=== PATIENT | male | born 1955 ===

== ENCOUNTER → 2019-07-29 06:46 | Day surgery (SDC) | payer MEDICARE ==
[~2019-07-29 06:46] MED LIST: Acetaminophen TAB* 325 MG ONE; Acetaminophen TAB* 325 MG PO ONE; Buffered Lidocaine 1% SYRIN* 1 ML/SYRINGE INTRADERM ONE; Bupivacaine 0.25% SDV* 30 ML ONE; DiMENhydriNATE IV* 50 MG/ML VIAL IV PUSH PRN; Famotidine IV* 10 MG/ML 2 ML (20 mg) IV ONE; Famotidine IV* 10 MG/ML 2 ML (20 mg) ONE; Gabapentin CAP(*) 300 MG ONE; Gabapentin CAP(*) 300 MG PO ONE; HYDROcodone/ACETAMIN 5-325 MG* 1 TAB PO PRN; Lactated Ringers 1000 ML Bag* 1,000 ML IV SCH; Lidocaine 2% PF * 5 ML VIAL ONE; Midazolam* 1 MG/ML 2 ML VIAL (2 MG) ONE; Naloxone* 0.4 MG/ML 1 ML VIAL IV PRN; Ondansetron INJ* 2 MG/ML VIAL IV PRN; Ondansetron INJ* 2 MG/ML VIAL ONE; Propofol* 10 MG/ML 20 ML BTL ONE; Succinylcholine* 20 MG/ML 10 ML VIAL ONE; ceFAZolin 2 GM in NS PREMIX(*) 2 GM/100 ML BAG IVPB ONE; fentaNYL* 50 MCG/ML 2 ML VIAL (100 MCG VIAL) IV PRN; fentaNYL* 50 MCG/ML 2 ML VIAL (100 MCG VIAL) ONE
--- NOTE | 2019-07-29 10:56 | OP ---
Operative Report - Blank - Operative Report Date of Operation: 07/29/19 Note: PATIENT: Yusef Cowart DATE OF : 1955 DATE OF SURGERY: 07/29/2019 SURGEON: Juan F Jimenez MD [employer] SUPERVISOR: ROXANA Rahman, whos assistance was necessary for positioning, retraction, help with instrumentation, and closure. ANESTHESIOLOGIST: Dr. Holloway PREOPERATIVE DIAGNOSIS: Left foot diabetic Charcot neuroarthropathy with plantar ulcer and underlying plantar midfoot exostoses. Left gastrocnemius contracture. POSTOPERATIVE DIAGNOSIS: Left foot diabetic Charcot neuroarthropathy with plantar ulcer and underlying plantar midfoot exostoses. Left gastrocnemius contracture. OPERATION: 1. Left plantar midfoot saucerization/partial ostectomy 2. Left modified Dario gastrocnemius recession. ANESTHESIA: General IMPLANTS: none TOURNIQUET TIME: Less than one hour with a well-padded thigh tourniquet at 250mmHg SPECIMENS: none ESTIMATED BLOOD LOSS: minimal COMPLICATIONS: none STATUS: Stable from the operating room to the recovery room and then home. INDICATIONS FOR PROCEDURE: Yusef has had a persistent and recurrent left plantar foot ulcer. This is in the setting of Charcot neuroarthropathy, with midfoot collapse and plantar exostoses. Both operative and non operative treatment alternatives were reviewed. Further, the nature and risks of surgery were reviewed in careful detail, in the office as well as the pre-operative holding area. Our discussions regarding the risks of surgery included, but were not limited to, infection, wound problems, persistent or recurrent ulcer, further collapse, nerve injury, neuroma, RSD, persistent symptoms, blood clot, persistent symptoms , failure of the surgery, need for further surgery, and even the remote chance of catastrophic complication. DESCRIPTION OF PROCEDURE: The patient was seen in the preoperative holding unit and informed written consent was obtained. The appropriate extremity was marked. The patient was then brought to the operating room and carefully positioned on the operating room table. Anesthesia was induced. All bony prominences were padded with great care. A well-padded thigh tourniquet was placed. A chlorhexidine based pre- scrub was performed followed by a chloraprep prep and drape in standard sterile fashion. A surgical safety pause was then conducted in which we confirmed the appropriate patient, extremity, planned procedure, availability of equipment, indication and administration of prophylactic antibiotics, and DVT prophylaxis in the form of a compression boot on the non-surgical extremity. I began with Esmarch exsanguination of the limb and inflated the tourniquet. I made a longitudinal incision at the lateral midfoot and carefully dissected plantarly along the bones. I was able to expose the prominent plantar exostoses underneath the ulcer. This was mostly made up of the cuboid bone. I used an oscillating saw to osteotomize the prominent plantar bone. This was then freed with osteotome and removed with a Rongeur. I then used rasps to smooth off the remaining edges. This provided a nice flat midfoot. I also felt the midfoot through the skin plantarly, and there were no prominences appreciated. I then thoroughly irrigated the wound and closed in layers utilizing 0 Vicryl, 3-0 Monocryl, and 3-0 nylon. I then made an approximately 3-cm incision at the posteromedial calf. I carried the dissection through the soft tissue and divided the crural fascia longitudinally. I then exposed the fascia of the gastrocnemius muscle. Great care was taken to protect the sural nerve throughout this procedure. I cleared all adhesions from the posterior aspect of the gastrocnemius fascia and then transected this in its entirety from medially to laterally. I then identified the plantaris tendon, which was also tight medially. This was transected. These procedures had the effect of improving the ankle dorsiflexion to approximately 10 degrees. I then again confirmed that the sural nerve was in continuity. We irrigated copiously. We then used #3-0 Monocryl for the subdermal layer and 3-0 nylon for the skin. A sterile dressing was applied followed by a splint with the ankle in neutral position. The patient was then awakened from anesthesia and transferred to the recovery room in stable condition. There were no complications. All needle and sponge counts were correct at the end of the case. ATTESTATION: I attest I was present and scrubbed and performed the critical portions of the procedure myself. POSTOPERATIVE PLAN: The patient will remain [id number] for two weeks. At that time, sutures will be removed and Steri-Strips applied and transition into a tall Aircast boot and begin weight-bearing at that time.
[2019-07-29 11:54] VITALS: BP 143/81
== END | disposition home or self-care (01) ==
LOC: OR 06:46
PROVIDERS: ATTEND Orthopaedic Surgery
DX: M14.672 Charcot's joint, left ankle and foot (principal); E11.621 Type 2 diabetes mellitus with foot ulcer; M25.775 Osteophyte, left foot; M67.02 Short Achilles tendon (acquired), left ankle; Z79.84 Long term (current) use of oral hypoglycemic drugs; Z87.891 Personal history of nicotine dependence; E11.42 Type 2 diabetes mellitus with diabetic polyneuropathy; I10 Essential (primary) hypertension; K21.9 Gastro-esophageal reflux disease without esophagitis; L97.429 Non-pressure chronic ulcer of left heel and midfoot with unspecified severity
CPT/HCPCS: A9270-GY; J0330; J0690; J2250; J2405; J2704; J3010; J3490

== ENCOUNTER 2019-10-16 11:21 | Day surgery (SDC) | payer MEDICARE ==
[~2019-10-16 11:21] MED LIST changes: -Acetaminophen TAB* 325 MG ONE; -Bupivacaine 0.25% SDV* 30 ML ONE; -DiMENhydriNATE IV* 50 MG/ML VIAL IV PUSH PRN; -Famotidine IV* 10 MG/ML 2 ML (20 mg) IV ONE; -Famotidine IV* 10 MG/ML 2 ML (20 mg) ONE; -Gabapentin CAP(*) 300 MG ONE; -Gabapentin CAP(*) 300 MG PO ONE; -HYDROcodone/ACETAMIN 5-325 MG* 1 TAB PO PRN; -Lidocaine 2% PF * 5 ML VIAL ONE; -Midazolam* 1 MG/ML 2 ML VIAL (2 MG) ONE; -Naloxone* 0.4 MG/ML 1 ML VIAL IV PRN; -Ondansetron INJ* 2 MG/ML VIAL IV PRN; -Ondansetron INJ* 2 MG/ML VIAL ONE; -Propofol* 10 MG/ML 20 ML BTL ONE; -Succinylcholine* 20 MG/ML 10 ML VIAL ONE; -ceFAZolin 2 GM in NS PREMIX(*) 2 GM/100 ML BAG IVPB ONE; -fentaNYL* 50 MCG/ML 2 ML VIAL (100 MCG VIAL) IV PRN; -fentaNYL* 50 MCG/ML 2 ML VIAL (100 MCG VIAL) ONE
[2019-10-16] MEDS ORDERED: ceFAZolin 2 GM PREMIX in ORs 2 GM/50 ML BAG ONE (12:44)
[2019-10-16] MEDS ORDERED: Acetaminophen TAB* 325 MG ONE (12:45)
[2019-10-16] MEDS ORDERED: Midazolam* 1 MG/ML 2 ML VIAL (2 MG) ONE (14:06)
[2019-10-16] MEDS ORDERED: Propofol* 10 MG/ML 20 ML BTL ONE (14:07)
[2019-10-16] MEDS ORDERED: fentaNYL* 50 MCG/ML 2 ML VIAL (100 MCG VIAL) ONE (14:07)
[2019-10-16] MEDS ORDERED: Lidocaine 1% INJ* 10 MG/ML 30 ML SDV ONE (14:12)
[2019-10-16] MEDS ORDERED: Bupivacaine 0.25% SDV* 30 ML ONE (14:12)
[2019-10-16] MEDS ORDERED: Naloxone* 0.4 MG/ML 1 ML VIAL IV PRN (14:53)
[2019-10-16] MEDS ORDERED: Ondansetron INJ* 2 MG/ML VIAL IV PRN (14:53)
--- NOTE | 2019-10-16 15:21 | OP ---
Operative Report - Blank - Operative Report Date of Operation: 10/16/19 Note: PATIENT: Yusef Cowart DATE OF : 1955 DATE OF SURGERY: 10/16/2019 SURGEON: Juan F Jimenez MD TWISTER DOFFER: ROXANA Haines, whos assistance was necessary for positioning, retraction, help with instrumentation, and closure. ANESTHESIOLOGIST: Dr. Hu PREOPERATIVE DIAGNOSIS: Left foot surgical wound dehiscence POSTOPERATIVE DIAGNOSIS: Left foot surgical wound dehiscence OPERATION: 1. Left foot irrigation and debridement. 2. Left foot saucerization of the proximal fifth metatarsal and lateral cuboid. 3. Complex secondary wound closure of left foot surgical wound dehiscence. ANESTHESIA: MAC IMPLANTS: none TOURNIQUET TIME: Less than 1 hour with an ankle Esmarch tourniquet. SPECIMENS: Culture swabs to microbiology. Fifth metatarsal and cuboid bone to pathology. ESTIMATED BLOOD LOSS: minimal COMPLICATIONS: none STATUS: Stable from the operating room to the recovery room and then home. 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 He previously underwent a saucerization of his plantar midfoot for a diabetic foot ulcer. The foot ulcer has healed, but he dehisced his surgical wound. We have been using a VAC with triweekly changes, but his wound is not improving. We discussed options and elected to move forward with surgery. Both operative and non-operative treatment alternatives were reviewed. Further, the nature and risks of surgery were reviewed in careful detail. Our discussions regarding the risks of surgery included, but were not limited to, infection, wound problems, persistent symptoms, blood clot, need for further surgery, need for amputation, failure of the surgery, and even the remote chance of catastrophic complication. DESCRIPTION OF PROCEDURE: The patient was seen in the preoperative holding unit and informed written consent was obtained. The appropriate extremity was marked. The patient was then brought to the operating room and carefully positioned on the operating room table. Anesthesia was induced. All bony prominences were padded with great care. A chlorhexidine based pre-scrub was performed followed by a Betadine prep and drape in standard sterile fashion. A surgical safety pause was then conducted in which we confirmed the appropriate patient, extremity, planned procedure, availability of equipment, indication and administration of prophylactic antibiotics, and DVT prophylaxis in the form of a compression boot on the non-surgical extremity. I began with an Esmarch exsanguination of the limb and placement of an ankle Esmarch tourniquet. The wound measured 4 cm in length by 2.5 cm in width by 1 cm in depth. Culture swabs were taken from the wound. A 15 blade scalpel to excise the wound margins on both sides of the wound. I also extended the wound , both proximally and distally to expose the underlying tissue. I sharply debrided all necrotic appearing tissue which included the skin, subcutaneous, fascial, muscle and periosteal layer down to bone. The skin was quite tight when I tried to provisionally close the wound, so I did decide to move forward with a saucerization of the underlying bone. An osteotome and mallet were used to remove part of the base of the fifth metatarsal and lateral cuboid. This bone was sent to pathology. This allowed for more mobilization of the skin flaps dorsally and plantarly. I then thoroughly irrigated the wound with sterile saline. I performed a complex closure of the wound. Given the abnormal shape of the wound, with a hemispherical widening in the middle, this was a difficult layered closure. I used #1 Vicryl in the deep layer, 3-0 Monocryl for the dermal layer, and 2-0 Prolene on the skin. Sterile dressing was then applied, followed by splint with the ankle in neutral. The patient was then awakened from anesthesia and transferred to the recovery room in stable condition. There were no complications. All needle and sponge counts were correct at the end of the case. ATTESTATION: I attest I was present and scrubbed and performed the critical portions of the procedure myself. POSTOPERATIVE PLAN: He will remain nonweightbearing and follow up in 2 weeks for a wound check. I will likely leave the sutures in for 4 weeks. He will remain on antibiotics for the next week.
[2019-10-16 15:42] VITALS: BP 149/84
== END 2019-10-16 16:00 | disposition home or self-care (01) ==
LOC: OREAST 11:21
PROVIDERS: ATTEND Orthopaedic Surgery
DX: T81.31XA Disruption of external operation (surgical) wound, not elsewhere classified, initial encounter (principal); E11.621 Type 2 diabetes mellitus with foot ulcer; L97.429 Non-pressure chronic ulcer of left heel and midfoot with unspecified severity; M14.672 Charcot's joint, left ankle and foot; Z87.891 Personal history of nicotine dependence; Z79.84 Long term (current) use of oral hypoglycemic drugs; I10 Essential (primary) hypertension
CPT/HCPCS: 87070; 87073; 87077; 87186; 87205; 88304; 88311; A9270-GY; J0690; J2250; J2704; J3010; J3490